=== PATIENT | male | born 1975 | race Caucasian/White ===

== ENCOUNTER 2021-04-14 13:41 | Outpatient (REF) | payer OTHER, SELFPAY ==
--- NOTE | ~2021-04-14 | US_ITS ---
EXAMINATION: US SCROTUM CLINICAL INFORMATION: Lump and scrotum, medial to left testicle. COMPARISON: None TECHNIQUE: A sonogram of the scrotum was performed assessing casey-scale appearance and color Doppler flow. Spectral Doppler analysis of the arterial and venous flow were performed in the testes bilaterally. FINDINGS: RIGHT: Right testicle measures 5.3 x 2.6 x 3.2 cm, volume 23.3 mL. No focal testicular parenchymal lesions are visualized. Spectral Doppler analysis of the arterial and venous flow is normal in the right testis. Right epididymal head is normal in size. No right varicocele is seen. Small right hydrocele. Right epididymal Doppler flow is normal. LEFT: Left testicle measures 5.1 x 3.1 x 3.0 cm, volume 25.4 mL. No focal testicular parenchymal lesions are visualized. Spectral Doppler analysis of the arterial and venous flow is normal in the left testis. Left epididymal head is normal in size. A small anechoic cyst measures 0.5 cm. No left varicocele is seen. Small left hydrocele. Left epididymal Doppler flow is normal. US/US scrotum IMPRESSION: 1. No intratesticular abnormality bilaterally. 2. Small bilateral hydroceles. 3. Very small left epididymal cyst.
== END 2021-04-14 13:42 | disposition home or self-care (01) ==
LOC: HO.US 13:41
PROVIDERS: PCP Internal Medicine Geriatric Medicine; Visit Provider Internal Medicine Geriatric Medicine
DX: N50.89 Other specified disorders of the male genital organs (principal)
CPT/HCPCS: 76870

== ENCOUNTER → 2021-12-27 09:03 | Outpatient (BNVA) | payer MEDICAID, SELFPAY | PROVIDERS: PCP Internal Medicine Geriatric Medicine; Visit Provider Surgery Vascular Surgery | DX: I83.12 Varicose veins of left lower extremity with inflammation (principal) | CPT/HCPCS: 99202 ==

== ENCOUNTER 2022-02-16 09:56 | Outpatient (REF) | payer MEDICAID, SELFPAY ==
--- NOTE | ~2022-02-16 | XR_ITS ---
EXAMINATION: XR LUMBOSACRAL SPINE CLINICAL INFORMATION: Low back pain. COMPARISON: September 11, 2018. TECHNIQUE: Three views of the lumbosacral spine. FINDINGS: The vertebral bodies and posterior elements appear unremarkable. The disc spaces appear preserved, and the vertebral alignment appears unremarkable. The paraspinal soft tissues appear normal. XR/XR lumbar spine 2-3V IMPRESSION: Unremarkable examination.
== END 2022-02-16 09:57 | disposition home or self-care (01) ==
LOC: HO.XRAY 09:56
PROVIDERS: PCP Internal Medicine Geriatric Medicine; Visit Provider Internal Medicine Geriatric Medicine
DX: M54.50 Low back pain, unspecified (principal)
CPT/HCPCS: 72100

== ENCOUNTER 2022-02-17 07:58 | Outpatient (REF) | payer MEDICAID, SELFPAY ==
--- NOTE | ~2022-02-17 | US_ITS ---
EXAMINATION: US LOWER EXTREMITY VENOUS (REFLUX EXAM), BILATERAL CLINICAL INDICATION: This is a 46-year-old male with venous insufficiency. Varicose veins. Inflammation and pain. Swelling. COMPARISON: Comparison is made to select portions of the study dated 10/16/2019 which did not demonstrate evidence of reflux or thrombus in the deep veins. However, reflux was only seen in the right great saphenous vein at the ankle. TECHNIQUE: Color flow triplex imaging and compression Doppler was performed to evaluate both the deep and the superficial systems bilaterally. To evaluate the superficial system, the examination was performed in the upright position. Color-flow Doppler ultrasound and compression ultrasound were utilized. In addition, maneuvers were utilized to demonstrate reflux. FINDINGS: 1. DEEP VENOUS ULTRASOUND OF THE RIGHT LOWER EXTREMITY: Common Femoral Vein: Compressible, normal respiratory variation and augmented flow. Femoral vein: Compressible, normal color flow and augmentation. Popliteal Vein: Compressible, normal augmentation. Deep Reflux: There is no evidence of reflux in the deep system in either the common femoral vein or the popliteal vein. There is no evidence of a Ariza's cyst. 2. SUPERFICIAL ULTRASOUND WITH DOPPLER OF RIGHT LOWER EXTREMITY: GREAT SAPHENOUS VEIN: Saphenofemoral Junction: 0.7 cm. There is no reflux Mid Thigh: 0.2 cm. There is no reflux Above Knee: Not seen. Below Knee: 0.2 cm Mid Calf: 0.1 cm Ankle: 0.1 cm GSV REFLUX: No evidence of reflux. DUPLICATED GREAT SAPHENOUS VEIN: There is a 0.3 cm duplicated lateral great saphenous vein without reflux. SMALL SAPHENOUS VEIN: Proximal: 0.2 cm Distal: 0.1 cm SSV REFLUX: No evidence of reflux. VEIN OF GIACOMINI: None Imaged. PERFORATORS: None Imaged VARICOSITIES: None Imaged 3. DEEP VENOUS ULTRASOUND OF THE LEFT LOWER EXTREMITY: Common Femoral Vein: Compressible, normal respiratory variation and augmented flow. Femoral Vein: Compressible, normal color flow and augmentation. Popliteal Vein: Compressible, normal augmentation. Deep Reflux: There is no evidence of reflux in the deep system in either the common femoral vein or the popliteal vein. There is no evidence of a Ariza's cyst. 4. SUPERFICIAL ULTRASOUND WITH DOPPLER OF LEFT LOWER EXTREMITY: GREAT SAPHENOUS VEIN: Saphenofemoral Junction: 0.7 cm. There is no reflux. Mid Thigh: 0.2 cm. There is no reflux. Above Knee: 0.2 cm. The reflux time is 664 ms. There is thickening of the wall of the great saphenous vein at the level the knee which may represent phlebitis. Below Knee: 0.1 cm. There is no reflux. Mid Calf: 0.1 cm. The reflux is greater than 3 seconds. Ankle: 0.1 cm. There is no reflux. GSV REFLUX: No evidence of reflux at the saphenofemoral junction or proximal thigh. DUPLICATED GREAT SAPHENOUS VEIN: None SMALL SAPHENOUS VEIN: Proximal: 0.1 cm Distal: Not seen SSV REFLUX: No evidence of reflux. VEIN OF GIACOMINI: None Imaged. 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 VARICOSITIES: There are 0.1 cm proximal calf varicose veins with greater than 3 seconds of reflux. US/US venous duplex LE BI IMPRESSION: 1. Incidental note is made of a 4.0 x 1.0 x 1.7 cm lymph node in the right groin. Clinical correlation is recommended. Follow-up ultrasound could be performed in 1-3 months. 2. There are bilateral patent great saphenous veins and small saphenous veins without evidence of reflux at the junctions, respectively. 3. Inflammatory changes are noted in the great saphenous vein at the level the left knee. This could represent new thrombophlebitis changes in the left great saphenous vein.
== END 2022-02-17 07:59 | disposition home or self-care (01) ==
LOC: HO.US 07:58
PROVIDERS: Visit Provider Surgery Vascular Surgery
DX: I83.12 Varicose veins of left lower extremity with inflammation (principal)
CPT/HCPCS: 93970

== ENCOUNTER → 2022-02-28 13:05 | Outpatient (BNVA) | payer MEDICAID, SELFPAY | PROVIDERS: PCP Internal Medicine Geriatric Medicine; Visit Provider Surgery Vascular Surgery | DX: M79.604 Pain in right leg (principal); M79.605 Pain in left leg | CPT/HCPCS: 99212 ==

== ENCOUNTER 2022-05-26 09:18 | Outpatient (REF) | payer MEDICAID, SELFPAY ==
--- NOTE | ~2022-05-26 | XR_ITS ---
EXAMINATION: XR KNEE, LEFT CLINICAL INFORMATION: Left knee pain COMPARISON: None TECHNIQUE: Four views of the left knee. FINDINGS: No acute fracture or dislocation. There is mild narrowing of the medial tibiofemoral joint with osteophytosis. Tiny tricompartmental osteophytes. XR/XR knee LT 4V IMPRESSION: Mild osteoarthritis of the left knee joint.
== END 2022-05-26 09:19 | disposition home or self-care (01) ==
LOC: HO.XRAY 09:18
PROVIDERS: PCP Internal Medicine Geriatric Medicine; Visit Provider Internal Medicine Geriatric Medicine
DX: M25.562 Pain in left knee (principal)
CPT/HCPCS: 73564

== ENCOUNTER 2022-10-24 16:08 | Outpatient (REF) | payer MEDICAID, SELFPAY ==
[2022-10-24 17:49] LABS: MANUAL DIFF FLAG NO
[2022-10-24 18:21] LABS: Anion Gap 14 (12-20); Blood Urea Nitrogen 14 mg/dL (9-16); Calcium 9.8 mg/dL (8.4-10.2); Carbon Dioxide 24 mmol/L (22-29); Chloride 105 mmol/L (96-108); Estimated Glomerular Filt Rate > 60; Glucose Random 78 mg/dL (60-115); Potassium 4.1 mmol/L (3.3-5.1); Sodium 139 mmol/L (135-145)
[2022-10-24 18:31] LABS: Basophils Percent Auto 0.9 % (0-2); Eosinophils Absolute Auto 0.1 X10*3/uL (0.0-0.4); Eosinophils Percent Auto 2.1 % (0-4); Hematocrit 45.2 % (42.0-52.0); Hemoglobin 14.6 g/dl (14.0-18.0); Imm Gran Abs Auto 0.01 X10*3/uL (0.00-0.03); Imm Gran Pct Auto 0.2 % (0.0-0.4); Lymphocytes Absolute Auto 1.5 X10*3/uL (1.2-4.9); Lymphocytes Percent Auto 35.1 % (20-40); Mean Corpuscular HGB Conc 32.3 g/dl (31.0-36.0); Mean Corpuscular Volume 86.8 fL (80.0-98.0); Mean Platelet Volume 11.9 fL (9.4-12.4); Monocytes Absolute Auto 0.4 X10*3/uL (0.1-1.2); Monocytes Percent Auto 10.1 % (2-11); Neutrophils Absolute Auto 2.3 x10*3/uL (2.0-8.3); Neutrophils Percent Auto 51.6 % (45-73); Platelet Count 182 X10*3/uL (160-400); Red Blood Count 5.21 X10*6/uL (4.60-5.80); Red Cell Distribution Width 13.2 % (11.0-16.0); White Blood Count 4.4 X10*3/uL (4.8-10.8)
== END 2022-10-24 16:09 | disposition home or self-care (01) ==
LOC: HO.HHCL 16:08
PROVIDERS: Visit Provider Internal Medicine Geriatric Medicine
DX: Z79.1 Long term (current) use of non-steroidal anti-inflammatories (NSAID) (principal)
CPT/HCPCS: 36415; 80048; 85025

== ENCOUNTER 2023-01-18 07:30 | Outpatient (REF) | payer MEDICAID, SELFPAY | END 2023-01-18 07:31 | disposition home or self-care (01) | LOC: HO.MRI 07:30 | PROVIDERS: PCP Internal Medicine Geriatric Medicine; Visit Provider Internal Medicine Geriatric Medicine | DX: M25.562 Pain in left knee (principal); G89.29 Other chronic pain | CPT/HCPCS: 73721 ==

== ENCOUNTER 2023-03-13 08:35 | Outpatient (AMB) | payer MEDICAID, SELFPAY ==
--- NOTE | 2023-03-13 08:50 | MHC.OFFVIS ---
Intake Vital Signs 03/13/23 08:53 Height 5 ft 11 in Weight 198 lb BMI 27.6 Intake Visit Reasons: [facility]- Left knee pain/ Swelling Intake Note: Roderick 47 yr old male presents today as a new patient for his left knee pain. Denies prior knee injection, P.T or surgery. The patient states that he has been using topical creams and doing exercises at home. He does have a knee brace. He is to exercise as much as possible. He states that at times his knee will give out. Allergies No Known Allergies [No Known Allergies*] Allergy (Verified 03/13/23 08:52) Medication List - Last Reconciled 03/13/23 by Immanuel Alan MD diclofenac sodium 1% 2 grams topical BID PFSH (Updated 03/13/23 @ 08:53 by HOLGER Gonzalez) Patient Tobacco Use Status: Never used Tobacco Current occupation: right hand/ [employer] Physical Exam Vital Signs: BMI result Body Mass Index 27.6 Const Other: Well-nourished well-developed very friendly male awake alert and oriented x3 in no acute distress Extrem Other: Bilateral lower extremity examination shows good capillary refill, no skin lesions noted, normal sensation light touch Left knee examination shows a minimal effusion, no medial or lateral joint line tenderness, slightly positive anterior drawer test Results Reviewed Results Reviewed: MRI of the patient's left knee shows no evidence of meniscal tearing, minimal diffuse degenerative changes, signal change within his anterior cruciate ligament due to possible partial-thickness versus full-thickness tearing Assessment & Plan Assessment & Plan (1) Left knee pain: Code(s): M25.562 - Pain in left knee Plan Mr. Frank presents with left knee pain and mechanical symptoms most likely due to partial-thickness tearing of his anterior cruciate ligament. I had a lengthy discussion with the patient regarding the treatment options. Patient wishes to hold off on surgery for as long as possible. He does not wish to go to formal physical therapy or having cortisone injection. Activity modifications were discussed at length with the patient. He will follow up with us on an as-needed basis should his symptoms worsen in any way. Feel free to call me at any time should questions regarding his orthopedic management arise. Thank you very much for asking me to see this very friendly gentleman. I spent 22 minutes in reviewing the patient's records and imaging studies, seeing the patient and documenting in the medical record. Coding Level of Care Code New Pt Level 2 (92575) Diagnoses Left knee pain M25.562
[2023-03-13 08:53] VITALS: BMI 27.6
== END 2023-03-13 09:13 | disposition home or self-care (01) ==
PROVIDERS: PCP Internal Medicine Geriatric Medicine; Visit Provider Orthopaedic Surgery
DX: M25.562 Pain in left knee (principal)
CPT/HCPCS: 99202

== ENCOUNTER → 2023-03-13 08:35 | Outpatient (BNVA) | payer MEDICAID, SELFPAY | PROVIDERS: PCP Internal Medicine Geriatric Medicine; Visit Provider Orthopaedic Surgery | DX: M25.562 Pain in left knee (principal) | CPT/HCPCS: 99202 ==